=== PATIENT | female | born 1990 | race Two or more races ===

== ENCOUNTER 2018-06-23 18:46 | Emergency (ER) | payer SELFPAY ==
[2018-06-23 18:54] VITALS: BP 96/56; RESP 16
[2018-06-23 19:13] VITALS: TEMP 98.3
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
[2018-06-23 19:59] VITALS: PULSE 81
[2018-06-23 20:10] VITALS: O2SAT 98
--- NOTE | 2018-06-24 22:54 | CARD ---
APPROVED REPORT Date of service: 06/23/2018 EKG Measurement Heart [id number] <Conclusion> Normal sinus rhythm with sinus arrhythmia Normal ECG
== END 2018-06-23 19:58 | disposition home or self-care (01) ==
LOC: H.ER 18:46 → SUPCPDRO 18:46 → H.ER 19:58
DX: R55 Syncope and collapse (principal)